=== PATIENT | female | born 1930 | race Caucasian/White ===

== ENCOUNTER 2018-09-06 14:12 | Emergency (ER) | payer BC ==
[~2018-09-06] VITALS: Ht 162.6 cm; Wt 70.3 kg
[~2018-09-06 14:12] MED LIST: ALPR0.5T2 PO; ASPI-1718 PO; COZ50 PO; DIT5 PO; OMEP40EC1 PO; PRAM0.5T4 PO; RANI-287 PO; SIMV20TA1 PO; XALOS OP; [UNRECOGNIZED DRUG - CODE] OP
--- NOTE | 2018-09-06 14:15 | NUR ---
STEFFEN PAIGE TO BED 9 AT THIS TIME.
[2018-09-06 14:17] VITALS: BP 220/104
--- NOTE | 2018-09-06 14:45 | NUR ---
PATIENT IS AN 88 YO FEMALE BIB EMS FROM [facility] FOR LEFT SIDED NECK PAIN, THIS PERSON FELL ON AN ESCALATOR ON HER LEFT ISDE AND HER NECK WAS ON THE STEP THE EXCALATOR WAS STOPPED AND EMS REMOVED HER FROM THE ESCALATOR PLACED HER IN A C COLLAR AND BROUGHT HER HERE.
--- NOTE | 2018-09-06 15:27 | NUR ---
Pt assisted with bed brower. Voided 200 ml.
[2018-09-06] MEDS ORDERED: KETOROLAC 60 MG/2 ML VIAL IM ONE (15:45)
--- NOTE | 2018-09-06 16:03 | NUR ---
TAKEN TO X-RAY.
--- NOTE | 2018-09-06 16:50 | NUR ---
ASSISTED FOR PRASAD LAMA.
--- NOTE | 2018-09-06 17:57 | NUR ---
Patient discharged with v/s stable. Written and verbal after care instructions given and explained to patient and . Patient alert, oriented and verbalized understanding of instructions. Ambulatory with steady gait. All questions addressed prior to discharge. ID band removed. Patient advised to follow up with PMD. Rx of MOTRIN AND NORCO given. Patient educated on indication of medication including possible reaction and side effects. Opportunity to ask questions provided and answered.
[2018-09-06 18:02] VITALS: BP 150/62
== END 2018-09-06 17:57 | disposition home or self-care (01) ==
LOC: MED 14:12
DX: S13.4XXA Sprain of ligaments of cervical spine, initial encounter (principal); M25.511 Pain in right shoulder; M25.512 Pain in left shoulder; E11.9 Type 2 diabetes mellitus without complications; K21.9 Gastro-esophageal reflux disease without esophagitis; I10 Essential (primary) hypertension; Z79.82 Long term (current) use of aspirin; Z79.899 Other long term (current) drug therapy; W19.XXXA Unspecified fall, initial encounter; Y93.89 Activity, other specified; Y92.89 Other specified places as the place of occurrence of the external cause; Y99.8 Other external cause status
CPT/HCPCS: 72040; 96372; 99283; J1885

== ENCOUNTER 2020-11-18 08:18 | Emergency (ER) | payer BC ==
[~2020-11-18] VITALS: Ht 165.1 cm; Wt 69.9 kg
[~2020-11-18 08:18] MED LIST changes: -ASPI-1718 PO; +ASPI-1822 PO; -COZ50 PO; +LOSA50TA57 PO; -OMEP40EC1 PO; +OMEP40EC24 PO
--- NOTE | 2020-11-18 08:18 | NUR ---
Patient BIBA BLS, transferred to bed 7. RN evaluating the patient at bedside.
[2020-11-18 08:19] VITALS: BP 187/76
--- NOTE | 2020-11-18 08:29 | NUR ---
89 Y/O FEMALE BIBA FROM HOME C/O GENERALIZED WEAKNESS & BACK/NECK PAIN 02/07 DESCRIBES SHARP AND ACHING S/P FALL: LANDED ON BUTTOCKS AND BACK X TODAY. PT DENIES N/V, DENIES FEVER/CHILLS. PMH: CHRONIC BACK & LEFT KNEE PAIN NKA
--- NOTE | 2020-11-18 08:30 | NUR ---
Assisted pt to bedpan for UA collection.
--- NOTE | 2020-11-18 08:34 | NUR ---
Dr. Rivera is evaluating the patient at bedside.
[2020-11-18] MEDS ORDERED: HYDROcodone/APAP 5/325 MG 1 TAB TAB PO ONE (08:45)
--- NOTE | 2020-11-18 08:54 | NUR ---
it desktop support technician at pt bedside.
--- NOTE | 2020-11-18 09:34 | NUR ---
Assisted pt to bedpan for void, pt HOB elevated for comfort, VSS, will continue to monitor.
--- NOTE | 2020-11-18 11:42 | NUR ---
Dr. Rivera at pt bedside for further pt updates.
[2020-11-18] MEDS ORDERED: BACL10TA4 PO (12:23)
[2020-11-18] MEDS ORDERED: ACET-503 PO (12:23)
[2020-11-18 12:53] VITALS: BP 176/84
--- NOTE | 2020-11-18 12:53 | NUR ---
Patient discharged with v/s stable. Written and verbal after care instructions given and explained. Patient alert, oriented and verbalized understanding of instructions. Wheel Chair Assisted with to car. All questions addressed prior to discharge. ID band removed. Patient advised to follow up with PMD. Rx of acetaminophen with codeine q6h, and baclofen 10mg po tid given. Patient educated on indication of medication including possible reaction and side effects. Opportunity to ask questions provided and answered.
== END 2020-11-18 12:53 | disposition home or self-care (01) ==
LOC: MED 08:18
DX: M54.5 Low back pain (principal); E11.9 Type 2 diabetes mellitus without complications; K21.9 Gastro-esophageal reflux disease without esophagitis; I10 Essential (primary) hypertension; M25.562 Pain in left knee; W19.XXXA Unspecified fall, initial encounter; Y93.89 Activity, other specified; Y92.89 Other specified places as the place of occurrence of the external cause; Y99.8 Other external cause status
CPT/HCPCS: 72125; 72128; 72131; 72170; 81002; 99285